=== PATIENT | female | born 1995 ===

== ENCOUNTER 2016-08-05 19:30 | Emergency (ER) | payer MEDICAID ==
[2016-08-05 19:35] VITALS: BMI 22.6
[2016-08-05] MEDS ORDERED: Albuterol-Ipratrop 3 mg / 0.5 (3 ml) UD INH STA ×2 (19:35→21:16)
[2016-08-05 19:46] VITALS: RESP 20
[2016-08-05] MEDS ORDERED: Albuterol-Ipratrop 3 mg / 0.5 (3 ml) UD ONE (19:54)
[2016-08-05] MEDS ORDERED: Sodium Chloride 0.9% 1,000 ML IV ONE (20:41)
--- NOTE | 2016-08-05 21:57 | C.PDOC ---
History Of Present Illness Patient is a 21 year old female who presents to the ER with a complaint of shortness of breath and wheezing for the past 2 days. Patient notes she is 26 weeks and uses a puffer for asthma. Denies any chest pain, nausea, fever, or vomiting. Time Seen by Provider: 08/05/16 19:32 Chief Complaint (Nursing): Shortness Of Breath History Per: Patient History/Exam Limitations: no limitations Onset/Duration Of Symptoms: Days (Past 2 days) Current Symptoms Are (Timing): Still Present Current Respiratory Medications: Other (Puffer, no nebulizer) Associated Symptoms: denies: Fever, Chills Past Medical History Reviewed: Historical Data, Nursing Documentation, Vital Signs Vital Signs: Last Vital Signs Temp 97.7 F 08/05/16 22:15 Pulse 113 H 08/05/16 22:15 Resp 20 08/05/16 22:15 BP 116/50 L 08/05/16 22:15 Pulse Ox 98 08/05/16 22:15 - Medical History PMH: Anemia, Anxiety, Asthma, Bipolar Disorder, Bronchitis, Depression Family History: States: Unknown Family Hx - Social History Hx Tobacco Use: No Hx Alcohol Use: No Hx Substance Use: No - Immunization History Hx Tetanus Toxoid Vaccination: Yes Hx Influenza Vaccination: Yes Hx Pneumococcal Vaccination: Yes Review Of Systems Review Of Systems: ROS cannot be obtained secondary to pt's inabilty to answer questions. Constitutional: Negative for: Fever, Chills Cardiovascular: Negative for: Chest Pain, Palpitations Respiratory: Positive for: Shortness of Breath, Wheezing Gastrointestinal: Negative for: Nausea, Vomiting Physical Exam - Physical Exam Appears: Non-toxic, Other (Moderate respiratory distress) Skin: Normal Color, Warm, Dry Head: Atraumatic, Normacephalic Oral Mucosa: Moist Chest: Symmetrical Cardiovascular: Rhythm Regular Respiratory: No Accessory Muscle Use, Rhonchi (Scattered), Wheezing (Scattered) Gastrointestinal/Abdominal: Soft, No Tenderness, No Distention, No Guarding, No Rebound Neurological/Psych: Oriented x3, Normal Speech, Normal Cognition ED Course And Treatment O2 Sat by Pulse Oximetry: 96 (room air) Pulse Ox Interpretation: Normal Progress Note: Nebulizer treatment and peak flow pre/post TX bid ordered. Duoneb INH, Pepcid IVP, IV fluids, prednisone PO, and solu-medrol IVP administered. Reevaluation Time: :56 Reassessment Condition: Improved Medical Decision Making Medical Decision Making: asthma exacerbation, no neb machine @ home. 26 weeks preg Disposition Doctor Will See Patient In The: Office Counseled Patient/Family Regarding: Studies Performed, Diagnosis - Disposition Referrals: Liliana Cordoba MD [Staff Provider] - Disposition: HOME/ ROUTINE Disposition Time: 21:57 Condition: GOOD Additional Instructions: Prednisone 40 mg daily for total of 5 days (you received 40 mg once in the ED) Nebulized treatments with Duoneb (2 ampules each) every 3-4 hours as needed Pepcid 20 mg @ night to preven stomach irritation from the prednisone Always use your albuterol puffer with the Aerochamber Spacer (plastic tube) makes it more effective Follow-up with your PMD in 2 days for re-evaluation Return to ED if your symptoms worsten. Prescriptions: Spacer, Inhalation [Aerochamber] 1 dev IH DAILY #1 dev Nebulizer [Compact Compressor Nebulizer] 1 dev XX PRN PRN #1 dev PRN Reason: asthma Albuterol/Ipratropium [Duoneb 3 MG/3 Ml-0.5 MG/3 Ml 3 Ml] 6 ml IH Q4H PRN #100 neb PRN Reason: asthma Famotidine [Pepcid] 20 mg PO HS #30 tab predniSONE [Prednisone] 40 mg PO DAILY #8 tab Instructions: Asthma (ED) - Clinical Impression Clinical Impression: , Asthma affecting , antepartum - Scribe Statement The provider has reviewed the documentation as recorded by the Scribtony Acuna All medical record entries made by the Scribe were at my direction and personally dictated by me. I have reviewed the chart and agree that the record accurately reflects my personal performance of the history, physical exam, medical decision making, and the department course for this patient. I have also personally directed, reviewed, and agree with the discharge instructions and disposition.
[2016-08-05 22:16] VITALS: BP 116/50; PULSE 113; TEMP 97.7
[2016-08-06 01:01] VITALS: O2SAT 96
== END 2016-08-05 22:18 | disposition home or self-care (01) ==
LOC: C.ER 19:30
DX: O99.512 Diseases of the respiratory system complicating pregnancy, second trimester (principal); J45.909 Unspecified asthma, uncomplicated; Z3A.26 26 weeks gestation of pregnancy

== ENCOUNTER 2016-08-10 15:30 | Observation (INO) | payer MEDICAID ==
[2016-08-10 15:35] VITALS: BMI 24.5
[2016-08-10] MEDS ORDERED: Albuterol-Ipratrop 3 mg / 0.5 (3 ml) UD INH STA ×3 (15:35→17:38)
[2016-08-10] MEDS ORDERED: Sodium Chloride 0.9% 1,000 ML IV ONE (15:36)
--- NOTE | 2016-08-10 15:38 | C.PDOC ---
History Of Present Illness 21 year old patient, with a past medical history of anemia, asthma, and bronchitis, brought to the ED by ambulance is complaining of shortness of breath and wheezing that began prior to arrival. Patient is 22 weeks . Patient was seen here by me on 08/05/16 for the same complaint. Patient was given Duoneb, Solu-Medrol, and Magnesium-Sulfate in the field. Patient denies chest pain, vomiting, abdominal pain, headache or dizziness. Time Seen by Provider: 08/10/16 15:34 Chief Complaint (Nursing): Shortness Of Breath History Per: Patient History/Exam Limitations: no limitations Onset/Duration Of Symptoms: Hrs (prior to arrival) Current Symptoms Are (Timing): Still Present Quality: Other Current Respiratory Medications: See Home Med List Severity: Mild Pain Scale Rating Of: 3 Reports Recently: Seen In ED Recent travel outside of the [place] States: No Additional History Per: Prior Records Past Medical History Reviewed: Historical Data, Nursing Documentation, Vital Signs Vital Signs: Last Vital Signs Temp 98 F 08/10/16 17:30 Pulse 107 H 08/10/16 17:30 Resp 24 08/10/16 17:30 BP 115/59 L 08/10/16 17:30 Pulse Ox 96 08/10/16 18:12 - Medical History PMH: Anemia, Anxiety, Asthma, Bipolar Disorder, Bronchitis, Depression Family History: States: Unknown Family Hx - Social History Hx Tobacco Use: No Hx Alcohol Use: No Hx Substance Use: No - Immunization History Hx Tetanus Toxoid Vaccination: Yes Hx Influenza Vaccination: Yes Hx Pneumococcal Vaccination: Yes Review Of Systems Except As Marked, All Systems Reviewed And Found Negative. Cardiovascular: Negative for: Chest Pain Respiratory: Positive for: Shortness of Breath, Wheezing Gastrointestinal: Negative for: Vomiting, Abdominal Pain Neurological: Negative for: Headache, Dizziness Physical Exam - Physical Exam Appears: Non-toxic, Other (mild respiratory distress) Skin: Warm, Dry Head: Atraumatic, Normacephalic Eye(s): bilateral: Normal Inspection, PERRL, EOMI Ear(s): Bilateral: Normal Nose: Normal Oral Mucosa: Moist Throat: Normal Neck: Normal ROM, Supple Chest: Symmetrical Cardiovascular: Rhythm Regular (tachycardic) Respiratory: Decreased Breath Sounds, No Rales, Rhonchi (scattered), Wheezing ( scattered) Gastrointestinal/Abdominal: Soft, No Tenderness Back: Normal Inspection, No CVA Tenderness Extremity: Normal ROM Neurological/Psych: Oriented x3, Normal Speech, Normal Cognition Gait: Steady ED Course And Treatment - Laboratory Results Result Diagrams: 08/10/16 16:15 08/10/16 16:15 Lab Interpretation: Abnormal (mild anemia/leukocytosis. ABG without hypoxia, nor CO2 retention) Urine POC: Positive ECG: Interpreted By Me ECG Rhythm: Sinus Tachycardia ECG Interpretation: Normal Rate From EC (bpm) O2 Sat by Pulse Oximetry: 96 (RA) Pulse Ox Interpretation: Normal - Radiology CXR: Interpreted by Me CXR Interpretation: Yes: No Acute Disease, Other (hyperinflated) Progress Note: Plan: ABG, Labs, EKG, Duoneb, IV fluids Reevaluation Time: 17:51 Reassessment Condition: Improved (persistent scattered wheezing.) Critical Care Time - Critical Care Note Total Time (in mins): 90 Documented critical care: time excludes all time spent performing seperately billable procedures. Medical Decision Making Medical Decision Making: recurrent asthma exacerbation with 27 wks seen for same 08/10/16 with ? compliance and insight to treatment and risks of asthma to Disposition Doctor Will See Patient In The: Hospital Counseled Patient/Family Regarding: Studies Performed, Diagnosis - Disposition Disposition: HOSPITALIZED Disposition Time: 17:55 Condition: FAIR - Clinical Impression Clinical Impression: Asthma affecting , antepartum - Scribe Statement The provider has reviewed the documentation as recorded by the Scribe Wendie Oneal Provider Attestation: All medical record entries made by the Scribe were at my direction and personally dictated by me. I have reviewed the chart and agree that the record accurately reflects my personal performance of the history, physical exam, medical decision making, and the department course for this patient. I have also personally directed, reviewed, and agree with the discharge instructions and disposition.
[2016-08-10 16:10] LABS: ABG ALLEN TEST A; ARTERIAL BLOOD HGB O2 SAT 96.2 % (95.0-98.0); CARBOXYHEMOGLOBIN 2.3 % (0.5-1.5); DRAW SITE RRA; HHB 0.1 % (0.0-5.0); METHEMOGLOBIN 1.4 % (0.0-3.0)
[2016-08-10] MEDS ORDERED: Albuterol-Ipratrop 3 mg / 0.5 (3 ml) UD ONE ×3 (16:22→18:42)
[2016-08-10 16:24] LABS: BASO # 0.1 K/uL (0.0-0.2); BASO % 0.5 % (0.0-2.0); EOS # 1.7 K/uL (0.0-0.7); EOS % 13.8 % (0.0-4.0); HEMATOCRIT 29.9 % (34.0-47.0); LYMPH # 1.7 K/uL (1.0-4.3); LYMPH % 13.3 % (20.0-40.0); MEAN CORPUSCULAR HEMOGLOBIN 32.3 pg (27.0-31.0); MEAN CORPUSCULAR HGB CONC 34.2 g/dL (33.0-37.0); MEAN PLATELET VOLUME 6.5 fL (7.2-11.7); MONO # 0.7 K/uL (0.0-0.8); MONO % 5.7 % (0.0-10.0); RED CELL DISTRIBUTION WIDTH 14.1 % (11.5-14.5); WHITE BLOOD COUNT 12.6 K/uL (4.8-10.8)
[2016-08-10 16:27] LABS: CHLORIDE 99 mmol/L (98-107); MEAN CELL VOLUME 94.6 fL (81.0-99.0); SODIUM 137 mmol/L (132-148)
[2016-08-10 16:28] LABS: POTASSIUM 3.5 mmol/L (3.6-5.2)
[2016-08-10 16:30] LABS: ALB/GLOB RATIO 1.2 (1.0-2.1); ALKALINE PHOSPHATASE 71 U/L (38-126); ALT/SGPT 16 U/L (9-52); AST/SGOT 20 U/L (14-36); BILIRUBIN,TOTAL 0.2 mg/dL (0.2-1.3); BLOOD UREA NITROGEN 8 mg/dL (7-17); CALCIUM 8.5 mg/dl (8.6-10.4); CARBON DIOXIDE 24 mmol/L (22-30); GFR AFRICAN-AMERICAN > 60; GLUCOSE,RANDOM 119 mg/dL (65-105); TOTAL PROTEIN 7.2 g/dL (6.3-8.3)
[2016-08-10 17:35] LABS: RBC URINE < 1 /hpf (0-3); URINE BACTERIA RARE (<OCC); URINE BILIRUBIN NEGATIVE (NEGATIVE); URINE BLOOD NEGATIVE (NEGATIVE); URINE COLOR Yellow (YELLOW); URINE GLUCOSE (UA) 1+ mg/dL (Normal); URINE KETONE NEGATIVE (NEGATIVE); URINE LEUKOCYTE ESTERASE TRACE Leu/uL (Negative); URINE PROTEIN NEGATIVE (NEGATIVE); URINE UROBILINOGEN NORMAL mg/dL (0.2-1.0); WBC URINE 5 /hpf (0-5)
[2016-08-10] MEDS ORDERED: MethylPREDNISolone 40 mg Vial IVP STA (20:56)
--- NOTE | 2016-08-10 21:13 | CP.PCM.HP ---
<Eda Quiñones - Last Filed: 08/10/16 21:08> History of Present Illness - History of Present Illness History of Present Illness: Internal medicine H & P for Dr. Berenice Quiñones, PGY-1 Pt S & E at bedside. 21 F w/PMH sig for asthma, anxiety, depression, currently 27 wks admitted for asthma exacerbation x 1 mo. Pt reports that she has been having some SOB on/off x 1 mo. Pt reports going to medical center 1 mo ago- diagnosed w/bronchitis, given medications and was discharged. Additionally, pt has reported to ED here with optimization and discharge with asthma medications- pt reports she took the medications, however asthma symptoms did not remit. Pt continues to have chest tightness, SOB, productive cough w/clear mucus, chills, headaches, abdominal cramping with coughing. Denies Fevers, congestion, sore throat, rhinnorhea, CP, N/V, dysuria, urinary frequency, dizziness, numbness or tingling of extremities, changes in vision, lightheadedness. 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 absent: Fever - EENT Eyes: absent: Change in Vision Ears: absent: Dizziness Nose/Mouth/Throat: Nasal Congestion. absent: Sore Throat - Cardiovascular Cardiovascular: absent: Chest Pain, Leg Edema, Lightheadedness, Palpitations - Respiratory Respiratory: Cough, Wheezing, Excessive Mucous Production - Gastrointestinal Gastrointestinal: absent: Abdominal Pain, Nausea, Vomiting - Genitourinary Genitourinary: absent: Change in Urinary Stream, Dysuria - Musculoskeletal Musculoskeletal: absent: Back Pain, Numbness, Tingling - Neurological Neurological: Headaches. absent: Dizziness, Paresthesias - Psychiatric Psychiatric: Anxiety Past Patient History - Infectious Disease Hx of Infectious Diseases: None - Past Social History Smoking Status: Never Smoked - CARDIAC Hx Cardiac Disorders: No - PULMONARY Hx Asthma: Yes Hx Bronchitis: Yes - NEUROLOGICAL HX Cerebrovascular Accident: No - HEMATOLOGICAL/ONCOLOGICAL Hx Anemia: Yes - PSYCHIATRIC Hx Anxiety: Yes Hx Bipolar Disorder: Yes Hx Depression: Yes Hx Substance Use: No - SURGICAL HISTORY Hx Surgeries: Yes Hx Orthopedic Surgery: Yes (rt. foot bunionectomy) Other/Comment: BUNION SURGERY RT FOOT - ANESTHESIA Hx Anesthesia: Yes Hx Anesthesia Reactions: No Meds Allergies/Adverse Reactions: Allergies Allergy/AdvReac Type Severity Reaction Status Date / Time No Known Allergies Allergy Verified 08/10/16 15:42 Physical Exam - Constitutional Appears: Non-toxic, No Acute Distress - Head Exam Head Exam: ATRAUMATIC, NORMAL INSPECTION, NORMOCEPHALIC - Eye Exam Eye Exam: EOMI, Normal appearance, PERRL Pupil Exam: NORMAL ACCOMODATION, PERRL - ENT Exam ENT Exam: Mucous Membranes Moist, Normal Exam - Neck Exam Neck exam: Positive for: Full Rom, Normal Inspection - Respiratory Exam Respiratory Exam: Accessory Muscle Use, Wheezes (B/L in all lung gleason), NORMAL BREATHING PATTERN. absent: Chest Wall Tenderness, Decreased Breath Sounds, Clear to Auscultation Bilateral, Rales, Rhonchi, Respiratory Distress - Cardiovascular Exam Cardiovascular Exam: Tachycardia, +S1, +S2 - GI/Abdominal Exam GI & Abdominal Exam: Normal Bowel Sounds, Soft. absent: Distended (), Firm, Guarding, Tenderness - Extremities Exam Extremities exam: Positive for: full ROM, normal inspection. Negative for: pedal edema - Back Exam Back exam: FULL ROM, NORMAL INSPECTION - Neurological Exam Neurological exam: Alert, CN II-XII Intact, Oriented x3 - Psychiatric Exam Psychiatric exam: Normal Affect, Normal Mood - Skin Skin Exam: Dry, Intact, Normal Color, Warm Results - Vital Signs Recent Vital Signs: Last Vital Signs Temp 98.1 F 08/10/16 20:33 Pulse 111 H 08/10/16 20:33 Resp 20 08/10/16 20:33 BP 92/40 L 08/10/16 20:33 Pulse Ox 98 08/10/16 20:33 - Labs Result Diagrams: 08/10/16 16:15 08/10/16 16:15 Assessment & Plan - Assessment and Plan (Free Text) Assessment: Asthma exacerbation Duonebs Q3H Solu-medrol 40mg TID Peak flows pre/post O2 via NC Monitor Cont home med: vitamin Zofran PRN Ob consulted- Jose Alejandro GI/DVT ppx SCDs Pepcid Lovenox Ambulate Dispo Admit to med surg Regular diet VS Q4H FU AM labs FU Ob recs Optimize breathing DW attending - Date & Time Date: 08/10/16 Time: 18:00 Decision To Admit - . Bed Request Type: Regular <Anderson Garcia - Last Filed: 08/11/16 07:13> Results - Vital Signs Recent Vital Signs: Last Vital Signs Temp 98 F 08/11/16 04:54 Pulse 90 08/11/16 04:54 Resp 20 08/11/16 04:54 BP 100/49 L 08/11/16 04:54 Pulse Ox 96 08/11/16 04:54 - Labs Result Diagrams: 08/10/16 16:15 08/10/16 16:15 Attending/Attestation - Attestation I have personally seen and examined this patient.: Yes I have fully participated in the care of the patient.: Yes I have reviewed all pertinent clinical information: Yes Notes (Text): Medical Attending: Patient was seen and examined by me. Agree with the above note by the resident. The patient reported that the nebulizer treaments in the ER have helped her breathing. She explains there have been a few recent previous times when she's had exacerbations. At this moment will add nebulizer treatments as well as IV solumedrol. Need to watch her pre and post peak flows. Will also try to get DUCK FARMER evaluation, I think her physician does come to the hospital. thank you Anderson Garcia
[2016-08-10] MEDS: Albuterol-Ipratrop 3 mg / 0.5 (3 ml) UD INH PRN (22:38)
[2016-08-11 07:33] LABS: BASO % 0.3 % (0.0-2.0); EOS # 0.1 K/uL (0.0-0.7); EOS % 0.8 % (0.0-4.0); HEMATOCRIT 26.5 % (34.0-47.0); LYMPH # 1.4 K/uL (1.0-4.3); LYMPH % 9.8 % (20.0-40.0); MEAN CELL VOLUME 94.7 fL (81.0-99.0); MEAN CORPUSCULAR HEMOGLOBIN 32.1 pg (27.0-31.0); MEAN CORPUSCULAR HGB CONC 33.9 g/dL (33.0-37.0); MEAN PLATELET VOLUME 6.9 fL (7.2-11.7); MONO # 0.7 K/uL (0.0-0.8); MONO % 4.8 % (0.0-10.0); PLATELET COUNT 263 K/uL (130-400); RED CELL DISTRIBUTION WIDTH 14.1 % (11.5-14.5); WHITE BLOOD COUNT 13.9 K/uL (4.8-10.8)
[2016-08-11 07:44] LABS: CHLORIDE 102 mmol/L (98-107)
[2016-08-11 07:45] LABS: POTASSIUM 3.8 mmol/L (3.6-5.2); SODIUM 138 mmol/L (132-148)
[2016-08-11 07:47] LABS: BILIRUBIN,TOTAL 0.9 mg/dL (0.2-1.3); GFR AFRICAN-AMERICAN > 60
[2016-08-11 07:48] LABS: ALB/GLOB RATIO 1.2 (1.0-2.1); ALKALINE PHOSPHATASE 74 U/L (38-126); ALT/SGPT 16 U/L (9-52); AST/SGOT 19 U/L (14-36); BLOOD UREA NITROGEN 7 mg/dL (7-17); CALCIUM 8.3 mg/dl (8.6-10.4); CARBON DIOXIDE 21 mmol/L (22-30); GLUCOSE,RANDOM 113 mg/dL (65-105); TOTAL PROTEIN 6.6 g/dL (6.3-8.3)
--- NOTE | 2016-08-11 08:58 | CP.PCM.PN ---
Subjective - Date & Time of Evaluation Date of Evaluation: 08/11/16 Time of Evaluation: 08:40 - Subjective Subjective: Patient was seen and examined by me. Since last night when we saw patient in the ER, she felt her respiration were easier and looked a lot better. She reported the wheezing was less, also no palpitations, no fever, cough was less as well, and chest tightness was much less. She reports she still has + coughing She looked well, but a random peakflow at bed side was difficult for her and it showed 160. So at this time continue with the IV solumedrol TID and also the nebulizer treatments - today add Pulmicort IHN BID. Pending LEARNING ADMINISTRATOR evaluation. Ordered ultrasound biophysical profile. She was sent from her LEARNING ADMINISTRATOR office to ER due to asthma exacerbation Objective - Vital Signs/Intake and Output Vital Signs (last 24 hours): Temp Pulse Resp BP Pulse Ox 98.3 F 90 16 104/54 L 95 08/11/16 07:15 08/11/16 07:15 08/11/16 07:15 08/11/16 07:15 08/11/16 07:15 Intake and Output: 08/11/16 08/11/16 06:59 18:59 Intake Total 220 Balance 220 - Medications Medications: Current Medications Albuterol/Ipratropium (Duoneb 3 Mg/0.5 Mg (3 Ml) Ud) 3 ml INH RQ3 PRN PRN Reason: Wheezing Last Admin: 08/10/16 22:38 Dose: 3 ml Budesonide (Pulmicort Respules) 0.5 mg INH RQ12 MIKE Enoxaparin Sodium (Lovenox) 30 mg SC DAILY MIKE Famotidine (Pepcid) 20 mg PO BID MIKE Last Admin: 08/10/16 21:40 Dose: 20 mg Ferrous Sulfate (Feosol) 325 mg PO BID MIKE Last Admin: 08/10/16 21:40 Dose: 325 mg Methylprednisolone (Solu-Medrol) 40 mg IVP TID MIKE Ondansetron HCl (Zofran Inj) 4 mg IVP Q6 PRN PRN Reason: Nausea/Vomiting Multivit/Folic Acid/Iron () 1 tab PO DAILY MIKE - Labs Labs: 08/11/16 07:21 08/11/16 07:21 - Constitutional Appears: No Acute Distress - Head Exam Head Exam: NORMAL INSPECTION, NORMOCEPHALIC - Eye Exam Eye Exam: EOMI, Normal appearance - ENT Exam ENT Exam: Mucous Membranes Moist - Respiratory Exam Respiratory Exam: Wheezes, NORMAL BREATHING PATTERN Additional comments: Still has wheezing - however improved since yesterday - GI/Abdominal Exam GI & Abdominal Exam: Soft, Normal Bowel Sounds. absent: Firm, Guarding, Rigid, Tenderness Additional comments: I do hear what appears to be heart tones on auscultation - Neurological Exam Neurological Exam: Alert, Awake, CN II-XII Intact, Oriented x3 Neuro motor strength exam: Left Upper Extremity: 5, Right Upper Extremity: 5, Left Lower Extremity: 5, Right Lower Extremity: 5 - Psychiatric Exam Psychiatric exam: Normal Affect, Normal Mood - Skin Skin Exam: Normal Color, Warm Assessment and Plan - Assessment and Plan (Free Text) Assessment: Asthma exacerbation 08/11: Today when we saw her, she reported breathing better and she had less wheezing on exam - however the peakflow of 150 is still low. This was a random flow so will need to review the pre and post flow numbers. In the mean time continue with IV solumedrol TID as well as add on pulmicort. Per my discussion with the patient she has been using her inhalers at home quite often and she at least fits moderate persistent asthma with excaerbations. , 21 weeks 08/11: Pending LEARNING ADMINISTRATOR evaluation. She tolerated this morning diet, denied pain, an ultrasound was ordered, Cont home med: vitamin Zofran PRN Ob consulted- Dr Blount GI/DVT ppx SCDs Pepcid Lovenox Ambulate
[2016-08-11] MEDS: MethylPREDNISolone 40 mg Vial IVP SCH ×3 (09:19→17:38)
[2016-08-11] MEDS: Enoxaparin 30 mg Syringe SC SCH ×2 (09:19→12:55)
[2016-08-11 09:57] LABS: EOSINOPHIL 1 % (0-4); NEUTROPHIL 82 % (50-75); TOTAL CELLS COUNTED 100
--- NOTE | 2016-08-11 11:27 | US ---
PROCEDURE: Obstetrical ultrasound examination with limited biophysical profile HISTORY: check status COMPARISON: 05/30/2016 TECHNIQUE: Transabdominal FINDINGS: The examination demonstrates a single live intrauterine gestation in breech presentation. The heart rate is 139 beats per minute. A normal quantity of amniotic fluid is visualized. The BELEN is 11.21 cm. A normal anterior placenta is identified. There is no evidence of placenta previa. The cervix is closed and measures 3.7 cm in length. biometry yields an ultrasound age of 28 weeks 1 day. The BRENNAN by ultrasound examination is 11/02/2016. The EFW is 1188 g. Limited review of anatomy demonstrates a 4 chamber heart. Fluid distends the stomach and urinary bladder. A three-vessel umbilical cord is identified. The anterior abdominal wall is intact. Two normal kidneys are visualized. The umbilical arterial S/ D ratio is 2.8, within normal limits. A limited biophysical profile examination yields a score of 8 out of 8. IMPRESSION: Single live intrauterine gestation of approximately 28 weeks 1 day gestational age. Breech presentation. Anterior placenta. No previa. Normal amniotic fluid. No anatomic abnormality appreciated. EFW is 1188 g. Biophysical profile score 8 out of 8.
[2016-08-11] MEDS: Prenatal Multivit/Folic Acid/Iron Tab PO SCH (11:46)
--- NOTE | 2016-08-11 13:00 | RAD ---
PROCEDURE: CHEST RADIOGRAPH, 1 VIEW HISTORY: SOB COMPARISON: None available. FINDINGS: LUNGS: Clear. PLEURA: No pneumothorax or pleural fluid seen. CARDIOVASCULAR: Normal. OSSEOUS STRUCTURES: No significant abnormalities. VISUALIZED UPPER ABDOMEN: Normal. OTHER FINDINGS: None. IMPRESSION: No active disease.
[2016-08-11] MEDS: Albuterol-Ipratrop 3 mg / 0.5 (3 ml) UD INH PRN (13:56)
[2016-08-11 16:17] VITALS: RESP 20
[2016-08-11] MEDS: Budesonide 0.5 mg/2 ml Inhal Susp UD INH SCH (20:08)
--- NOTE | 2016-08-11 20:10 | CP.PCM.CON ---
History of Present Illness - History of Present Illness History of Present Illness: Asked by Dr. Garcia to see patient : 28 weeks , asthma exacerbation Patient seen and evaluated approximately 0930 hours: received in bed, room 659B in good spirits. 21 yo LMP 01/29/16, BRENNAN 11/04/16, EGA 27w 6d, confirmed by sono 08/11/16 at 28w 1d, admitted for management/treatment of acute asthma exacerbation. Patient was seen by primary Ob provider at [facility] Saturday08/10/16 for routine visit. Due to audible wheezing she was referred to E.D. for further management. Patient was triaged and treated in E.D.; was found to have a low peak flow - decision made to admit for continued treatment for acute asthma exacerbation; also in the setting of recent visit to E.D. for same in past 4 days, and patient's subjective complaint of asthma symptoms intermittently in the past 1 month. Currently, reports (+) movement, slightly decreased compared to normal; denies leakage of fluid per vagina, vaginal bleeding or abdominal cramps/abdominal pain. Reports her breathing is better; looking forward to going home P Ob: Primip P [employer]: 15 x monthly x 7. Denies STIs PMH: 1) bronchitis, diagnosed end 2014. No exacerbations until . Has had a total of 4 visits to the E.D. inclusive of this one; no admission prior to this. 2) depression/anxiety - diagnosed 2014; started on medication 12/2015. With , medications were discontinued by primary psych early 03/2016. PSH: 2013, right bunionectomy NKDA Meds: PNV; albuterol inhaler and nebulizer, PRN Soc Hx: denies tobacco, illicit drug or EtOH use. Lives with her mother and brother. With FOB x 4 years. Patient evasive when answering questions about FOB "we had a really big argument just before I came in" Fam Hx: Mother alive 53 y.o. - h/o bone cancer. Father 2011, heart condition and stroke. Review of Systems - Review of Systems All systems: reviewed and no additional remarkable complaints except - Respiratory Respiratory: As Per HPI Past Patient History - Infectious Disease Hx of Infectious Diseases: None - Past Medical History & Family History Past Medical History?: Yes - Past Social History Smoking Status: Never Smoked Drugs: Denies - CARDIAC Hx Cardiac Disorders: No - PULMONARY Hx Asthma: Yes Hx Bronchitis: Yes - NEUROLOGICAL Hx Neurological Disorder: No HX Cerebrovascular Accident: No - HEENT Hx HEENT Problems: No - RENAL Hx Chronic Kidney Disease: No - ENDOCRINE/METABOLIC Hx Endocrine Disorders: No - HEMATOLOGICAL/ONCOLOGICAL Hx Anemia: Yes - INTEGUMENTARY Hx Dermatological Problems: No - MUSCULOSKELETAL/RHEUMATOLOGICAL Hx Musculoskeletal Disorders: No Hx Falls: No - GASTROINTESTINAL Hx Gastrointestinal Disorders: No - GENITOURINARY/GYNECOLOGICAL Hx Genitourinary Disorders: No LMP:: 01/29/2016 : 1 Para: 0 Termination of : 0 - PSYCHIATRIC Hx Anxiety: Yes Hx Bipolar Disorder: Yes Hx Depression: Yes Hx Substance Use: No - SURGICAL HISTORY Hx Surgeries: Yes Hx Orthopedic Surgery: Yes (rt. foot bunionectomy) Other/Comment: BUNION SURGERY RT FOOT - ANESTHESIA Hx Anesthesia: Yes Hx Anesthesia Reactions: No Hx Malignant Hyperthermia: No Has any member of the family had a problem w/ anesthesia?: No Meds Allergies/Adverse Reactions: Allergies Allergy/AdvReac Type Severity Reaction Status Date / Time No Known Allergies Allergy Verified 08/10/16 15:42 - Medications Medications: Current Medications Albuterol/Ipratropium (Duoneb 3 Mg/0.5 Mg (3 Ml) Ud) 3 ml INH RQ3 PRN PRN Reason: Wheezing Last Admin: 08/11/16 13:56 Dose: 3 ml Budesonide (Pulmicort Respules) 0.5 mg INH RQ12 [facility] Docusate Sodium (Colace) 100 mg PO BID [facility] Last Admin: 08/11/16 17:38 Dose: 100 mg Enoxaparin Sodium (Lovenox) 30 mg SC DAILY [facility] Last Admin: 08/11/16 12:55 Dose: Not Given Famotidine (Pepcid) 20 mg PO BID [facility] Last Admin: 08/11/16 17:38 Dose: 20 mg Ferrous Sulfate (Feosol) 325 mg PO BID [facility] Last Admin: 08/11/16 17:39 Dose: 325 mg Methylprednisolone (Solu-Medrol) 40 mg IVP TID [facility] Last Admin: 08/11/16 17:38 Dose: 40 mg Ondansetron HCl (Zofran Inj) 4 mg IVP Q6 PRN PRN Reason: Nausea/Vomiting Multivit/Folic Acid/Iron () 1 tab PO DAILY [facility] Last Admin: 08/11/16 11:46 Dose: 1 tab Physical Exam - Constitutional Appears: Well, No Acute Distress - Head Exam Head Exam: NORMAL INSPECTION - ENT Exam ENT Exam: Mucous Membranes Moist - Respiratory Exam Respiratory Exam: Wheezes Additional comments: Bilateral, inspiratory and expiratory - Cardiovascular Exam Cardiovascular Exam: REGULAR RHYTHM - GI/Abdominal Exam GI & Abdominal Exam: Normal Bowel Sounds, Soft Additional comments: Gravid, soft, non-tender in all quadrants - Extremities Exam Extremities exam: Positive for: normal inspection - Back Exam Back exam: NORMAL INSPECTION - Neurological Exam Neurological exam: Alert, Oriented x3 - Psychiatric Exam Psychiatric exam: Normal Affect, Normal Mood - Skin Skin Exam: Dry, Pallor, Warm Results - Vital Signs Recent Vital Signs: Last Vital Signs Temp 99 F 08/11/16 16:16 Pulse 96 H 08/11/16 16:16 Resp 20 08/11/16 16:16 BP 88/50 L 08/11/16 16:16 Pulse Ox 95 08/11/16 16:16 - Labs Result Diagrams: 08/11/16 07:21 08/11/16 07:21 Labs: Laboratory Results - last 24 hr 08/11/16 07:21 WBC 13.9 H RBC 2.80 L Hgb 9.0 L Hct 26.5 L MCV 94.7 MCH 32.1 H MCHC 33.9 RDW 14.1 Plt Count 263 MPV 6.9 L Neut % (Auto) 84.3 H Lymph % (Auto) 9.8 L [place] % (Auto) 4.8 Eos % (Auto) 0.8 Baso % (Auto) 0.3 Neut # 11.7 H Lymph # 1.4 [place] # 0.7 Eos # 0.1 Baso # 0.0 Neutrophils % (Manual) 82 H Band Neutrophils % 2 Lymphocytes % (Manual) 12 L Monocytes % (Manual) 3 Eosinophils % (Manual) 1 Platelet Estimate Normal RBC Morphology Normal Sodium 138 Potassium 3.8 Chloride 102 Carbon Dioxide 21 L Anion Gap 19 BUN 7 Creatinine 0.4 L Est GFR ( Amer) > 60 Est GFR (Non-Af Amer) > 60 Random Glucose 113 H Calcium 8.3 L Total Bilirubin 0.9 AST 19 ALT 16 Alkaline Phosphatase 74 Total Protein 6.6 Albumin 3.6 Globulin 3.0 Albumin/Globulin Ratio 1.2 Assessment & Plan - Assessment and Plan (Free Text) Assessment: Laboratory and imaging reports were reviewed by me personally. 21 y.o. P0, 27w 6d, acute asthma exacerbation for treatment. Patient is S/P obstetric ultrasound: reviewed with patient results - 28w 1d, and good evaluation (normal fluid and movement). Patient counseled on importance of ambulation and instructed on dorsiflexion of her feet while in bed (patient had expressed concern re: lovenox andhas declined). Patient otherwise clinically stable. re: status. Plan: 1) Acute asthma exacerbation - treatment per primary medical team 2) 27 weeks 6 days - NST once a day (Q 24 hours) - start Sunay 08/12/16 (patient has had assessment for today) - continue vitamins 1 tab by mouth once a day 3) anemia - ferrous gluconate 324 mg poBID with - Colace 100 mg po BID Will follow with you. - Date & Time Date: 08/11/16 Time: 20:21
[2016-08-12 08:30] LABS: CHLORIDE 102 mmol/L (98-107); POTASSIUM 3.1 mmol/L (3.6-5.2); SODIUM 138 mmol/L (132-148)
[2016-08-12 08:32] LABS: AST/SGOT 16 U/L (14-36); BILIRUBIN,TOTAL 0.2 mg/dL (0.2-1.3); CARBON DIOXIDE 22 mmol/L (22-30); GFR AFRICAN-AMERICAN > 60
[2016-08-12 08:33] LABS: ALB/GLOB RATIO 1.3 (1.0-2.1); ALKALINE PHOSPHATASE 66 U/L (38-126); ALT/SGPT 15 U/L (9-52); BASO % 0.2 % (0.0-2.0); BLOOD UREA NITROGEN 9 mg/dL (7-17); CALCIUM 8.2 mg/dl (8.6-10.4); EOS # 0.1 K/uL (0.0-0.7); EOS % 0.8 % (0.0-4.0); GLUCOSE,RANDOM 82 mg/dL (65-105); HEMATOCRIT 25.4 % (34.0-47.0); LYMPH % 13.4 % (20.0-40.0); MEAN CELL VOLUME 95.1 fL (81.0-99.0); MEAN CORPUSCULAR HEMOGLOBIN 32.6 pg (27.0-31.0); MEAN CORPUSCULAR HGB CONC 34.3 g/dL (33.0-37.0); MEAN PLATELET VOLUME 6.7 fL (7.2-11.7); MONO # 1.2 K/uL (0.0-0.8); MONO % 8.1 % (0.0-10.0); TOTAL PROTEIN 6.1 g/dL (6.3-8.3); WHITE BLOOD COUNT 14.7 K/uL (4.8-10.8)
[2016-08-12] MEDS: Budesonide 0.5 mg/2 ml Inhal Susp UD INH SCH ×2 (08:47→08:55)
[2016-08-12] MEDS: MethylPREDNISolone 40 mg Vial IVP SCH ×2 (09:59→14:00)
[2016-08-12] MEDS: Prenatal Multivit/Folic Acid/Iron Tab PO SCH (10:01)
[2016-08-12] MEDS: Enoxaparin 30 mg Syringe SC SCH (10:11)
[2016-08-12] MEDS ORDERED: Albuterol-Ipratrop 3 mg / 0.5 (3 ml) UD INH SCH (14:00)
[2016-08-12] MEDS ORDERED: Potassium Chloride 20 mEq ER Tab PO ONE (14:36)
[2016-08-12 17:38] VITALS: PULSE 80
[2016-08-12 17:47] VITALS: BP 99/60; TEMP 98; O2SAT 98
--- NOTE | 2016-08-12 18:46 | CP.PCM.DIS ---
Provider - Provider Date of Admission: 08/10/16 17:48 Attending physician: Anderson Garcia DO Primary care physician: Dr. Garcia Consults: Dr. Blount/Dr. Oleary Time Spent in preparation of Discharge (in minutes): 50 Hospital Course - Lab Results Lab Results: Most Recent Lab Values WBC 14.7 K/uL (4.8-10.8) H 08/12/16 08:13 RBC 2.67 Mil/uL (3.80-5.20) L 08/12/16 08:13 Hgb 8.7 g/dL (11.0-16.0) L 08/12/16 08:13 Hct 25.4 % (34.0-47.0) L 08/12/16 08:13 MCV 95.1 fL (81.0-99.0) 08/12/16 08:13 MCH 32.6 pg (27.0-31.0) H 08/12/16 08:13 MCHC 34.3 g/dL (33.0-37.0) 08/12/16 08:13 RDW 14.0 % (11.5-14.5) 08/12/16 08:13 Plt Count 247 K/uL (130-400) 08/12/16 08:13 MPV 6.7 fL (7.2-11.7) L 08/12/16 08:13 Neut % (Auto) 77.5 % (50.0-75.0) H 08/12/16 08:13 Lymph % (Auto) 13.4 % (20.0-40.0) L 08/12/16 08:13 [place] % (Auto) 8.1 % (0.0-10.0) 08/12/16 08:13 Eos % (Auto) 0.8 % (0.0-4.0) 08/12/16 08:13 Baso % (Auto) 0.2 % (0.0-2.0) 08/12/16 08:13 Neut # 11.4 K/uL (1.8-7.0) H 08/12/16 08:13 Lymph # 2.0 K/uL (1.0-4.3) 08/12/16 08:13 [place] # 1.2 K/uL (0.0-0.8) H 08/12/16 08:13 Eos # 0.1 K/uL (0.0-0.7) 08/12/16 08:13 Baso # 0.0 K/uL (0.0-0.2) 08/12/16 08:13 Neutrophils % (Manual) 82 % (50-75) H 08/11/16 07:21 Band Neutrophils % 2 % (0-2) 08/11/16 07:21 Lymphocytes % (Manual) 12 % (20-40) L 08/11/16 07:21 Monocytes % (Manual) 3 % (0-10) 08/11/16 07:21 Eosinophils % (Manual) 1 % (0-4) 08/11/16 07:21 Platelet Estimate Normal (NORMAL) 08/11/16 07:21 RBC Morphology Normal 08/11/16 07:21 Puncture Site Rra 08/10/16 16:00 pCO2 34 mm/Hg (35-45) L 08/10/16 16:00 pO2 117 mm/Hg (80-100) H 08/10/16 16:00 HCO3 23.4 mmol/L (21-28) 08/10/16 16:00 ABG pH 7.42 (7.35-7.45) 08/10/16 16:00 ABG Total CO2 23.1 mmol/L (22-28) 08/10/16 16:00 ABG O2 Saturation 99.9 % (95-98) H 08/10/16 16:00 ABG Base Excess -1.9 mmol/L (-2.0-3.0) 08/10/16 16:00 ABG Hemoglobin 10.3 g/dL (11.7-17.4) L 08/10/16 16:00 ABG Carboxyhemoglobin 2.3 % (0.5-1.5) H 08/10/16 16:00 POC ABG HHb (Measured) 0.1 % (0.0-5.0) 08/10/16 16:00 ABG Methemoglobin 1.4 % (0.0-3.0) 08/10/16 16:00 Al Test A 08/10/16 16:00 A-a O2 Difference 40.0 mm/Hg 08/10/16 16:00 Respiratory Index 0.3 08/10/16 16:00 Hgb O2 Saturation 96.2 % (95.0-98.0) 08/10/16 16:00 Liter Flow 2.0 08/10/16 16:00 FiO2 28.0 % 08/10/16 16:00 Sodium 138 mmol/L (132-148) 08/12/16 08:13 Potassium 3.1 mmol/L (3.6-5.2) L 08/12/16 08:13 Chloride 102 mmol/L (98-107) 08/12/16 08:13 Carbon Dioxide 22 mmol/L (22-30) 08/12/16 08:13 Anion Gap 17 (10-20) 08/12/16 08:13 BUN 9 mg/dL (7-17) 08/12/16 08:13 Creatinine 0.5 MG/DL (0.7-1.2) L 08/12/16 08:13 Est GFR ( Amer) > 60 08/12/16 08:13 Est GFR (Non-Af Amer) > 60 08/12/16 08:13 Random Glucose 82 mg/dL (65-105) 08/12/16 08:13 Calcium 8.2 mg/dl (8.6-10.4) L 08/12/16 08:13 Total Bilirubin 0.2 mg/dL (0.2-1.3) 08/12/16 08:13 AST 16 U/L (14-36) 08/12/16 08:13 ALT 15 U/L (9-52) 08/12/16 08:13 Alkaline Phosphatase 66 U/L (38-126) 08/12/16 08:13 Total Protein 6.1 g/dL (6.3-8.3) L 08/12/16 08:13 Albumin 3.4 g/dL (3.5-5.0) L 08/12/16 08:13 Globulin 2.7 gm/dL (2.2-3.9) 08/12/16 08:13 Albumin/Globulin Ratio 1.3 (1.0-2.1) 08/12/16 08:13 Urine Color Yellow (YELLOW) 08/10/16 17:20 Urine Clarity Hazy (Clear) 08/10/16 17:20 Urine pH 6.0 (5.0-8.0) 08/10/16 17:20 Ur Specific [place] 1.016 (1.003-1.030) 08/10/16 17:20 Urine Protein Negative mg/dL (NEGATIVE) 08/10/16 17:20 Urine Glucose (UA) 1+ mg/dL (Normal) 08/10/16 17:20 Urine Ketones Negative mg/dL (NEGATIVE) 08/10/16 17:20 Urine Blood Negative (NEGATIVE) 08/10/16 17:20 Urine Nitrate Negative (NEGATIVE) 08/10/16 17:20 Urine Bilirubin Negative (NEGATIVE) 08/10/16 17:20 Urine Urobilinogen Normal mg/dL (0.2-1.0) 08/10/16 17:20 Ur Leukocyte Esterase Trace [place]/uL (Negative) 08/10/16 17:20 Urine WBC (Auto) 5 /hpf (0-5) 08/10/16 17:20 Urine RBC (Auto) < 1 /hpf (0-3) 08/10/16 17:20 Ur Squamous Epith Cells 7 /hpf (0-5) H 08/10/16 17:20 Urine Bacteria Rare (<OCC) 08/10/16 17:20 Urine Opiates Screen Negative (NEGATIVE) 08/10/16 17:20 Urine Methadone Screen Negative (NEGATIVE) 08/10/16 17:20 Ur Barbiturates Screen Negative (NEGATIVE) 08/10/16 17:20 Ur Phencyclidine Scrn Negative (NEGATIVE) 08/10/16 17:20 Ur Amphetamines Screen Negative (NEGATIVE) 08/10/16 17:20 U Benzodiazepines Scrn Negative (NEGATIVE) 08/10/16 17:20 U Oth Cocaine Metabols Negative (NEGATIVE) 08/10/16 17:20 U Cannabinoids Screen Negative (NEGATIVE) 08/10/16 17:20 Influenza Typ A,B (EIA) Negative for flu a/b (NEGATIVE) 08/10/16 16:05 - Hospital Course Hospital Course: 21 F w/PMH sig for asthma, anxiety, depression, currently 27 wks admitted for asthma exacerbation x 1 mo. Pt reports that she has been having some SOB on/off x 1 mo. Pt reports going to medical center 1 mo ago- diagnosed w/bronchitis, given medications and was discharged. Additionally, pt has reported to ED here with optimization and discharge with asthma medications- pt reports she took the medications, however asthma symptoms did not remit. Pt continues to have chest tightness, SOB, productive cough w/clear mucus, chills, headaches, abdominal cramping with coughing. Denies Fevers, congestion, sore throat, rhinnorhea, CP, N/V, dysuria, urinary frequency, dizziness, numbness or tingling of extremities, changes in vision, lightheadedness. Pt was started on nebulizer treatment, IV solumedrol and Pulmicort. OBGYN Dr. Oleary was consulted. OB ultrasound was done and showed 28w 1d healthy . Pt symptoms improved, able to have random peak flow of 250-300 and able to ambulate without SOB. Pt discharged with Ventolin, Duoneb, Pulmicort and Medrol dose pack, in addition to her vitamins and iron. Pt instructed to follow up with PMD Dr. Blount within 1-2 weeks after discharge. Pt verbalize understanding. Discharge Exam - Head Exam Head Exam: NORMAL INSPECTION - Eye Exam Eye Exam: Normal appearance Pupil Exam: NORMAL ACCOMODATION - Respiratory Exam Respiratory Exam: Wheezes (improved), NORMAL BREATHING PATTERN. absent: Prolonged Expiratory Phase, Respiratory Distress - Cardiovascular Exam Cardiovascular Exam: REGULAR RHYTHM, +S1, +S2. absent: Gallop, Rubs - GI/Abdominal Exam GI & Abdominal Exam: Normal Bowel Sounds, Soft. absent: Tenderness Discharge Plan - Discharge Medications Prescriptions: Albuterol HFA [Ventolin HFA 90 mcg/actuation (8 g)] 2 puff IH [id number] PRN #1 puff PRN Reason: shortness of breath Albuterol/Ipratropium [Duoneb 3 mg/0.5 mg (3 ml) UD] 3 ml INH RQ6 #120 neb Methylprednisolone [Medrol Dose Pack (21 tabs)] 4 mg PO DAILY #21 mg Budesonide [Pulmicort Respules] 0.5 mg INH RQ12 #60 neb - Follow Up Plan Condition: IMPROVED Disposition: HOME/ ROUTINE Instructions: Albuterol (By breathing), Methylprednisolone (By mouth), Budesonide (By breathing), Asthma (DC) Additional Instructions: Discharged per Dr. Garcia. Please take newly prescribed medication as prescribed: Medrol dose pack, Ventolin, Pulmicort and Duonebs. Resume your vitamins and iron as well. Please make appointment and follow up with your primary doctor within 1-2 weeks after discharge. Come to ED if symptoms reoccurred. Referrals: Anderson Garcia DO [Staff Provider] -
== END 2016-08-12 18:30 | disposition home or self-care (01) ==
LOC: C.ER 15:30 → C.9E 17:48 → C.6T 19:40
PROVIDERS: ADMIT Hospitalist; ATTEND Hospitalist
DX: O99.513 Diseases of the respiratory system complicating pregnancy, third trimester (principal); J45.41 Moderate persistent asthma with (acute) exacerbation; Z3A.28 28 weeks gestation of pregnancy
CPT/HCPCS: 36415 ×2; 71010; 76815; 76818; 80053 ×3; 80324; 80345; 80346; 80349; 80353; 80358; 80361; 81001; 82803; 83992; 85025 ×3; 87804; 94640 ×4; 99285; G0378 ×3; J2920 ×3; J7040

== ENCOUNTER 2016-10-16 21:23 | Emergency (ER) | payer MEDICAID ==
[2016-10-16 21:23] VITALS: BMI 24.5
[2016-10-16 21:35] VITALS: RESP 20
[2016-10-16] MEDS ORDERED: Alum-Mag Hydrox-Simethicone Susp (30 mL) PO STA (21:51)
[2016-10-16] MEDS ORDERED: Aluminum Hydroxide/Magnesium Hydroxide Susp (30 mL) ONE (21:54)
--- NOTE | 2016-10-16 22:07 | C.PDOC ---
History Of Present Illness A 21 y/o female with a Hx of anxiety and PTSD, comes in c/o burning epigastric sensation for 2 days. Pt is 37 weeks with multiple ER evaluations for her . Pt denies fever, chills, nausea, vomiting, diarrhea, SOB, light headedness, vaginal bleeding or discharge, or any other complaints. Time Seen by Provider: 10/16/16 21:43 Chief Complaint (Nursing): Chest Pain History Per: Patient History/Exam Limitations: no limitations Onset/Duration Of Symptoms: Days Current Symptoms Are (Timing): Still Present Severity: Mild Quality Of Discomfort: Burning Associated Symptoms: denies: Fever, Chills, Nausea, Vomiting Recent travel outside of the [place]: No Additional History Per: Patient Abnormal Vaginal Bleeding: No Past Medical History Reviewed: Historical Data, Nursing Documentation, Vital Signs Vital Signs: Last Vital Signs Temp 98.2 F 10/16/16 23:14 Pulse 72 10/16/16 23:14 Resp 20 10/16/16 23:14 BP 118/70 10/16/16 23:14 Pulse Ox 99 10/17/16 00:02 - Medical History PMH: Anemia, Anxiety, Asthma, Bipolar Disorder, Bronchitis, Depression Denies: Chronic Kidney Disease Family History: States: Unknown Family Hx - Social History Hx Tobacco Use: No Hx Alcohol Use: No Hx Substance Use: No - Immunization History Hx Tetanus Toxoid Vaccination: Yes Hx Influenza Vaccination: Yes Hx Pneumococcal Vaccination: Yes Review Of Systems Except As Marked, All Systems Reviewed And Found Negative. Constitutional: Negative for: Fever, Chills Cardiovascular: Negative for: Light Headedness Respiratory: Negative for: Shortness of Breath Gastrointestinal: Positive for: Abdominal Pain (Epigastric pain). Negative for : Nausea, Vomiting, Diarrhea Genitourinary: Negative for: Vaginal Discharge, Vaginal Bleeding Physical Exam - Physical Exam Appears: Non-toxic, No Acute Distress, Other () Skin: Warm, Dry Head: Atraumatic, Normacephalic Eye(s): bilateral: Normal Inspection Oral Mucosa: Moist Throat: Normal, No Exudate Chest: Symmetrical, Tenderness (Non-reproducible pain of the chest wall), Other Cardiovascular: Rhythm Regular Respiratory: Normal Breath Sounds, No Rales, No Rhonchi, No Wheezing Gastrointestinal/Abdominal: Soft, No Tenderness Neurological/Psych: Oriented x3 (Awake and alert), Normal Speech, Normal Cognition Gait: Steady ED Course And Treatment ECG: Interpreted By Me, Viewed By Me ECG Rhythm: Sinus Rhythm ECG Interpretation: Normal Rate From EC O2 Sat by Pulse Oximetry: 99 (RA) Pulse Ox Interpretation: Normal Progress Note: symptoms improved with pepcid/Maalox Reevaluation Time: 22:00 Medical Decision Making Medical Decision Making: Impression: 21 y/o female c/o burning epigastric sensation for 2 days Plans: Pepcid, maalox Disposition Doctor Will See Patient In The: Office Counseled Patient/Family Regarding: Studies Performed, Diagnosis - Disposition Referrals: Liliana Cordoba MD [Staff Provider] - Disposition: HOME/ ROUTINE Disposition Time: 23:00 Condition: GOOD Additional Instructions: pepcid 20 mg @ night to lower stomach acid and gastritis Maalox 30 cc 4-5x/day as needed for symtoms Follow-up with your PMD/OBGYN as needed. Instructions: Gastroesophageal Reflux Disease (ED) - Clinical Impression Clinical Impression: , Chest discomfort, GERD (gastroesophageal reflux disease) - Scribe Statement The provider has reviewed the documentation as recorded by the Scribe Raulito reyes All medical record entries made by the Scribe were at my direction and personally dictated by me. I have reviewed the chart and agree that the record accurately reflects my personal performance of the history, physical exam, medical decision making, and the department course for this patient. I have also personally directed, reviewed, and agree with the discharge instructions and disposition.
[2016-10-16 23:16] VITALS: BP 118/70; PULSE 72; TEMP 98.2
[2016-10-16 23:46] VITALS: O2SAT 99
--- NOTE | 2016-10-30 12:20 | CARD ---
APPROVED REPORT EKG Measurement Heart [id number] <Conclusion> Normal sinus rhythm Normal ECG
== END 2016-10-16 23:16 | disposition home or self-care (01) ==
LOC: C.ER 21:23
DX: O26.893 Other specified pregnancy related conditions, third trimester (principal); K21.9 Gastro-esophageal reflux disease without esophagitis; R07.89 Other chest pain; Z3A.37 37 weeks gestation of pregnancy